=== PATIENT | female | born 1955 | race Two or more races ===

== ENCOUNTER 2024-03-06 09:18 | Inpatient (IN) | payer OTHER ==
[~2024-03-06] VITALS: Ht 157.5 cm; Wt 81.6 kg
[2024-03-06 10:18] LABS: HEMATOCRIT 39.3 % (36.0-45.00); HEMOGLOBIN 13.3 g/dL (12.0-15.00); MEAN CORPUSCULAR HEMOGLOBIN 29.8 pg (27.00-32.0); MEAN CORPUSCULAR HGB CONC 33.8 g/dl (32.0-36.0); PLATELET COUNT 393 K/uL (150-450); RED BLOOD COUNT 4.46 M/uL (4.00-6.00); RED CELL DISTRIBUTION WIDTH 14.6 % (11.5-14.5)
[2024-03-06 10:30] LABS: URINE APPEARANCE Clear; URINE BILIRRUBIN Negative (NEGATIVE); URINE BLOOD Negative; URINE COLOR Yellow; URINE GLUCOSE Negative (NEGATIVE); URINE LEUKOCYTE Moderate; URINE NITRATE Negative; URINE PROTEIN Negative (NEGATIVE); URINE UROBILINOGEN 0.2 E.U./dl
[2024-03-06 10:35] LABS: URINE BACTERIA 50.3 uL (0.0-1933); URINE EPITHELIAL CELLS 10.1 uL (0.0-38.8); URINE RBC 7.3 uL (0.0-20.8); URINE WBC 18.9 uL (0.0-23.2)
[2024-03-06 11:13] LABS: INR 1.06; PARTIAL THROMBOPLASTIN TIME 26.5 SECONDS (22.0-34.0); PROTHROMBIN TIME 11.1 SECONDS (9.0-11.5)
[2024-03-06 11:23] LABS: BILIRUBIN TOTAL 1.76 mg/dL (0.3-1.2); CALCIUM 9.8 mg/dL (8.5-10.1); CREATININE SERUM 0.63 mg/dL (0.55-1.02); GFR 94.25; GLOBULINA 3.8 G/DL (2.4-3.5); POTASSIUM 5.47 mEq/L (3.5-5.1); TOTAL PROTEIN 7.8 gm/dL (6.4-8.2)
[2024-03-13] MEDS ORDERED: ENALAPRILAT DIHYDRATE 1.25 MG/ML VIAL IV PRN (14:00)
[2024-03-13] MEDS ORDERED: BUPIVACAINE HCL/MPF 0.5% 30ML VIAL ONE (14:17)
[2024-03-13] MEDS ORDERED: KETOROLAC TROMETHAMINE 60 MG VIAL IM ONE ×2 (14:17→15:45)
[2024-03-13] MEDS ORDERED: LIDOCAINE HCL 1%/EPINEPHRINE 20ML VIAL IJ ONE ×2 (14:17→15:45)
[2024-03-13] MEDS ORDERED: VANCOMYCIN HCL 1,000 MG VIAL ONE ×2 (14:17→14:18)
[2024-03-13] MEDS ORDERED: TRANEXAMIC ACID 100MG/1ML (1000MG) AMPUL IV ONE (14:18)
[2024-03-13] MEDS ORDERED: POVIDONE-IODINE 0.75 OZ PACKET TOP ONE (14:20)
[2024-03-13] MEDS ORDERED: VANCOMYCIN HCL 1,000 MG VIAL IV SCH (15:00)
[2024-03-13] MEDS ORDERED: MORPHINE SULFATE 4 MG/ML VIAL IV ONE (15:45)
[2024-03-13] MEDS ORDERED: BUPIVACAINE HCL/PF 0.25% 30ML VIAL InF ONE (15:45)
[2024-03-13] MEDS ORDERED: CARVEDILOL25 M1 (16:17)
[2024-03-13] MEDS ORDERED: FUROSEMIDE20 MG (16:17)
[2024-03-13] MEDS ORDERED: LOSARTAN POTASS25 MG (16:17)
[2024-03-13] MEDS ORDERED: ATORVASTATIN CA20 MG (16:17)
[2024-03-13] MEDS ORDERED: SODIUM CHLORIDE 0.45 % 1,000 ML IV SCH (17:15)
[2024-03-13] MEDS ORDERED: ONDANSETRON HCL 2 MG/ML VIAL IV PRN (17:15)
[2024-03-13] MEDS ORDERED: MORPHINE SULFATE 4 MG/ML CARTRIDGE IV PRN (17:15)
[2024-03-13] MEDS ORDERED: OxyCODONE HCL 5 MG TABLET (ROXICODONE) PO PRN (17:15)
[2024-03-13] MEDS ORDERED: ACETAMINOPHEN 500 MG GEL..CAP PO SCH (18:00)
[2024-03-13] MEDS ORDERED: CARVEDILOL 25 MG TABLET PO SCH (21:00)
[2024-03-13] MEDS ORDERED: VANCOMYCIN HCL 1,000 MG in 0.9 % SODIUM CHLORIDE 250 ML IV SCH (21:00)
[2024-03-14] MEDS ORDERED: GABAPENTIN 300 MG CAPSULE PO SCH (01:00)
[2024-03-14 07:44] LABS: HEMATOCRIT 34.8 % (36.0-45.00); HEMOGLOBIN 11.8 g/dL (12.0-15.00); MEAN CELL VOLUME 87.5 fL (80.00-100.00); MEAN CORPUSCULAR HEMOGLOBIN 29.7 pg (27.00-32.0); MEAN CORPUSCULAR HGB CONC 33.9 g/dl (32.0-36.0); PLATELET COUNT 286 K/uL (150-450); RED BLOOD COUNT 3.98 M/uL (4.00-6.00); RED CELL DISTRIBUTION WIDTH 14.3 % (11.5-14.5)
[2024-03-14] MEDS ORDERED: CIPRO500 MG PO (08:34)
[2024-03-14] MEDS ORDERED: PERCOCET 5-3251 EACH PO (08:34)
[2024-03-14] MEDS ORDERED: ELIQUIS2.5 MG PO (08:34)
[2024-03-14] MEDS ORDERED: SENNOSIDES 1 TAB TABLET PO SCH (09:00)
[2024-03-14] MEDS ORDERED: LOSARTAN POTASSIUM 100 MG TABLET PO SCH (09:00)
[2024-03-14] MEDS ORDERED: APIXABAN 2.5 MG TABLET PO SCH (09:00)
[2024-03-14] MEDS ORDERED: SOD FERRIC GLUC COMPLX/SUCROSE 62.5 MG/5 ML AMPUL IV SCH (16:25)
[2024-03-14] MEDS ORDERED: Cyanocobalamin/Mecobalamin 1 TAB.SL SL SCH (17:00)
[2024-03-14] MEDS ORDERED: VITAMIN B COMPLEX 1 EACH PO SCH (17:00)
[2024-03-14] MEDS ORDERED: APIXABAN 5 MG TABLET PO SCH (21:00)
[2024-03-15 08:05] LABS: HEMATOCRIT 32.9 % (36.0-45.00); HEMOGLOBIN 11.1 g/dL (12.0-15.00); MEAN CELL VOLUME 88.7 fL (80.00-100.00); MEAN CORPUSCULAR HGB CONC 33.8 g/dl (32.0-36.0); PLATELET COUNT 293 K/uL (150-450); RED BLOOD COUNT 3.71 M/uL (4.00-6.00); RED CELL DISTRIBUTION WIDTH 13.7 % (11.5-14.5)
[2024-03-15] MEDS ORDERED: IRON FUM,PS/FOLIC ACID/VITC/B3 1 CAP CAPSULE PO SCH (09:00)
== END 2024-03-15 19:10 | DRG 470 ==
LOC: SURH 03-13 06:32 → O/R 03-13 06:32 → SURG 03-13 09:45 → SURH 03-13 17:08
PROVIDERS: ADMIT Orthopaedic Surgery; ATTEND Orthopaedic Surgery
PROC: 0MNP0ZZ Release Left Knee Bursa and Ligament, Open Approach (ICD-10-PCS; 2024-03-13)
PROC: 0SRD0JZ Replacement of Left Knee Joint with Synthetic Substitute, Open Approach (ICD-10-PCS; principal; 2024-03-13 10:00)
PROC: 4A12X4Z Monitoring of Cardiac Electrical Activity, External Approach (ICD-10-PCS; 2024-03-14)
DX: M17.12 Unilateral primary osteoarthritis, left knee (principal); D62 Acute posthemorrhagic anemia; I10 Essential (primary) hypertension; I48.91 Unspecified atrial fibrillation; M22.12 Recurrent subluxation of patella, left knee